=== PATIENT | male | born 1970 | race Caucasian/White ===

== ENCOUNTER 2019-01-17 07:09 | Outpatient (CLI) | payer OTHER ==
[~2019-01-17 07:09] MED LIST: MEDROL4 MG PO; TUSSIONEX PENNKI5 ML PO
== END 2019-01-17 07:14 | disposition home or self-care (01) ==
LOC: LAB 07:09
DX: J45.998 Other asthma (principal); Z12.11 Encounter for screening for malignant neoplasm of colon; Z12.5 Encounter for screening for malignant neoplasm of prostate; E78.2 Mixed hyperlipidemia

== ENCOUNTER 2022-05-14 08:22 | Outpatient (CLI) | payer OTHER | END 2022-05-14 08:23 | disposition home or self-care (01) | LOC: LAB 08:22 | PROVIDERS: ATTEND Obstetrics & Gynecology | DX: N30.80 Other cystitis without hematuria (principal); E78.5 Hyperlipidemia, unspecified; R97.20 Elevated prostate specific antigen [PSA]; R09.3 Abnormal sputum; E88.9 Metabolic disorder, unspecified ==